=== PATIENT | male | born 1955 | race Caucasian/White ===

== ENCOUNTER 2023-12-22 16:57 | Emergency (ER) | payer BC, SELFPAY ==
[2023-12-22 17:01] VITALS: BP 143/63
[2023-12-22 17:38] VITALS: BMI 27.2
--- NOTE | 2023-12-22 17:39 | EDRN ---
Pt reports hx of asthma, usually gets bronchitis 1-2 x a year, Tuesday started with shallow breathing, post nasal drip and productive cough. Developed fever last night of 102. Called doctor and told to come to ED d/t holiday. Pt took aspirin today &
inhalers without much relief.
[2023-12-22 17:41] VITALS: BP 126/69
[2023-12-22 18:00] VITALS: BP 122/66
--- NOTE | 2023-12-22 18:14 | ED.GENMED ---
History of Present Illness
General
Chief Complaint: Breathing Problem
Source: patient
Time Seen by Provider: 12/22/23 17:41
History of Present Illness
History of Present Illness:
68-year-old male presents to the emergency room complaining of fever, congestion, shortness of breath, cough. Patient states he has a history of asthma and once or twice a year developed symptoms similar to this. Typically improves with a course
of antibiotics. He began feeling unwell 2 days ago. Last night he noted he had a temperature up to 102. No nausea, vomiting, abdominal pain. No chest pain. He contacted his primary care provider who told him to come to the emergency room.
Patient is tolerating oral intake.
Past History
Past History
ED Past Medical History: Asthma and Other (ADD); Negative Hypercholesterolemia or IDDM
Social History
Tobacco: Non-smoker
Alcohol: None
Drug: None
Personal:
Living: with family
Employment: Employed
Family History
Family History: CAD; Negative Early CAD
Phy Exam
Physical Exam
Physical Exam:
General: Awake, Alert, Oriented X3. No acute distress.
Vitals: Febrile, normal pulse ox
Head: Atraumatic
Eyes: Pupils equal, EOMI
Throat: Airway intact, no exudates, mildly dry
Neck: Trachea midline
Lungs: Decreased breath sounds bilaterally, expiratory wheezing bilaterally
Heart: Regular rate, no murmurs
Abd: Soft, Nontender, No pulsatile mass
Neuro: Nonfocal
Skin: Warm, dry, no rash
Extremities: pulses equal b/l, no edema
Scores
Heart Failure Risk
Heart Failure Risk Score: Not Applicable
Course
Orders/Labs/Results
Orders:
Orders
12/22/23 18:12
Acetaminophen [Tylenol] 650 mg PO NOW STA
Ipratropium/Albuterol Sulfate [Duoneb] 3 ml INH R NOW ONE
12/22/23 18:13
CR Chest - 2 Views Urgent
Comment:
Reason For Exam: fever, cough, sob
12/22/23 18:21
Basic Metabolic Panel Urgent
COVID-19 Antigen Urgent
Source: Nasal Swab
Complete Blood Count/With Diff Urgent
Lactic Acid Q4H
Comment: CANCEL 2nd LACTIC ACID IF 1st LACTIC ACID IS LESS THAN 2
Influenza A+B Rapid Molecular Urgent
DALILA Source: Nasal Swab
Specimen Description:
12/22/23 20:21
Doxycycline [Vibramycin] 100 mg PO NOW STA
Ipratropium/Albuterol Sulfate [Duoneb] 3 ml INH R NOW STA
12/22/23 20:26
Prednisone [Deltasone] 50 mg PO NOW STA
Abnormal Lab Results
12/22/23
18:21
RBC 4.24 L 10^6/uL
(4.70-6.10)
Hct 36.6 L %
(39.0-52.0)
Abs Immat Gran (auto) 0.1 H 10^3/uL
(0-0.05)
Absolute Neuts (auto) 8.2 H 10^3/uL
(1.4-6.5)
Absolute Lymphs (auto) 1.0 L 10^3/uL
(1.2-3.4)
Absolute Monos (auto) 1.0 H 10^3/uL
(0.1-0.6)
Immature Gran % 0.7 H %
(0-0.5)
Neutrophils % 79.0 H %
(42.2-75.2)
Lymphocytes % 9.2 L %
(20.5-51.1)
Monocytes % 9.5 H %
(1.7-9.3)
12/22/23 18:21
12/22/23 18:21
Vital Signs
Initial and Last Documented VS:
Initial Vital Signs
Temp Pulse Resp BP Pulse Ox
98.3 F 74 16 143/63 97
12/22/23 17:01 12/22/23 17:01 12/22/23 17:01 12/22/23 17:01 12/22/23 17:01
Last Documented Vital Signs
Temp Pulse Resp BP Pulse Ox
100.2 F 60 18 104/49 98
12/22/23 19:45 12/22/23 20:45 12/22/23 20:45 12/22/23 20:00 12/22/23 20:45
MDM/Problems Addressed
Differential Diagnosis Includes:
Pneumonia, acute bronchitis, asthma exacerbation
MDM/Problems Addressed:
Though patient is febrile COVID and flu test are negative. White count is normal. Chemistries and lactate are normal. Chest x-ray shows no acute infiltrate. Will cover for acute bronchitis with doxycycline. Also cover bronchospasm with steroids
and albuterol nebulizer. Patient feeling better. On repeat exam after couple DuoNebs he is moving air more easily. Wheezing has improved.
*Radiology
Radiology exam reviewed: preliminary read by ED provider (Personally reviewed the patient's chest x-ray and see no infiltrate)
*Pulse Oximetry
Patient hypoxic: no
*Critical Care Note
Total Time (30-74mins, 75-104mins- exclusive of procedures): Not Applicable
ED Attending Note
-
Portions of this chart may have been created with voice recognition software.� Occasional wrong word or��sound alike� substitutions may have occurred due to the inherent limitations of voice recognition software.
Discharge Plan
Departure
Patient Disposition: Home (Routine Discharge)
Date of Disposition: 12/22/23
Time of Disposition: 20:22
Patient with high blood pressure during this ER visit?: No
Condition: Good
Discharge Problem:
Acute bronchitis, Acute bronchospasm
Instructions: Acute Bronchitis, Adult (DC)
Prescriptions:
New
doxycycline monohydrate 100 mg capsule
100 mg PO BID Qty: 14 0RF
fluticasone propion-salmeterol [Advair Diskus] 250-50 mcg/dose blister with device
1 inh inhalation BID Qty: 60 0RF
albuterol sulfate 2.5 mg/0.5 mL solution for nebulization
2.5 mg inhalation Q6H PRN (Reason: bronchospasm) Qty: 30 0RF
prednisone 20 mg tablet
40 mg PO DAILY Qty: 8 0RF
No Action
Albuterol Sulfate Hfa
1 puff inhalation PRN (Reason: wheezing)
methylphenidate HCl [Concerta] 36 MG tablet extended release 24hr
1 tab PO DAILY
Claritin
1 tab PO DAILY
Patient Comments:
unsure of mg
Wellbutrin Regular Release:
1 tab PO DAILY
Patient Comments:
unsure of mg
hydrocodone-acetaminophen [Vicodin] 1 EACH tablet
1 ea PO .Q4-6HPRN Qty: 10 0RF
ibuprofen 600 MG tablet
600 mg PO Q6H Qty: 30 0RF
hydrocodone-acetaminophen [Vicodin] 1 EACH tablet
1 ea PO Q6 PRN (Reason: Pain) Qty: 15 0RF
cyclobenzaprine 10 MG tablet
10 mg PO TIDPRN PRN (Reason: Muscle Spasm) Qty: 15 0RF
prednisone 50 MG tablet
50 mg PO DAILY Qty: 5 0RF
albuterol sulfate 1 PUFF HFA aerosol inhaler
2 puff inhalation R Q4HPRN PRN (Reason: wheezing) Qty: 1 0RF
codeine-guaifenesin [Guaiatussin AC] 10 ML liquid
5 ml PO Q6HPRN PRN (Reason: coughing) Qty: 100 0RF
fluticasone propion-salmeterol [Advair Diskus] 1 EACH blister with device
1 ea IH BID Qty: 1 0RF
levalbuterol HCl 1.25 MG/3 ML solution for nebulization
1.25 mg inhalation R Q4HPRN PRN (Reason: wheezing) Qty: 30 0RF
hydrocodone-acetaminophen [Vicodin] 1 EACH tablet
1 ea PO Q6HPRN PRN (Reason: pain) Qty: 12 0RF
Referrals:
Bony Waldron MD [Family Provider] -
Interventions
Interventions:
*Risk Screen - Suicide Last Done: 12/22/23 17:01
*General Assessment Last Done: 12/22/23 17:01
*Neglect/Abuse Screening Last Done: 12/22/23 17:01
ED- Fall Risk Assessment Last Done: 12/22/23 20:54
*ED COVID-19 Vaccine History Last Done: 12/22/23 20:54
*Nursing Disposition Last Done: 12/22/23 20:54
ED- Cardiac Assessment Last Done: 12/22/23 17:58
ED- Pulmonary Assessment Last Done: 12/22/23 19:58
Discharge Date and Time
Discharge Date/Time: 12/22/23 20:55
Print Language: ICELANDIC
[2023-12-22] MEDS: DUONEB 3 ML INH ×2 (18:25→20:32)
[2023-12-22] MEDS: TYLENOL 650 MG PO (18:25)
[2023-12-22 18:38] LABS: % Basophils 0.7 % (0-2); % Eosinophils 0.9 % (0-6); % Immature Granulocytes 0.7 % (0-0.5); % Lymphocytes 9.2 % (20.5-51.1); % Monocytes 9.5 % (1.7-9.3); Absolute Basophils 0.1 10^3/uL (0-0.2); Absolute Eosinophils 0.1 10^3/uL (0-0.7); Absolute Immature Granulocytes 0.1 10^3/uL (0-0.05); Absolute Neutrophils 8.2 10^3/uL (1.4-6.5); Hematocrit 36.6 % (39.0-52.0); Mean Corp Hgb Conc. 35.5 g/dL (33.0-37.0); Mean Corpuscular Hgb 30.7 pg (27.0-31.0); Mean Corpuscular Volume 86.3 fL (80.0-94.0); Mean Platelet Volume 8.7 fL (7.4-10.4); Nucleated Red Blood Cells % 0 % (-); Platelet Count 154 10^3/uL (130-400); Red Blood Cell Count 4.24 10^6/uL (4.70-6.10); Red Cell Dist. Width 12.4 % (11.5-14.5); White Blood Cell Count 10.3 10^3/uL (4.8-10.8)
[2023-12-22 18:51] LABS: COVID-19 Antigen Negative (Negative)
[2023-12-22 18:57] LABS: Blood Urea Nitrogen 12 mg/dl (9-20); Calcium 8.7 mg/dl (8.4-10.2); Carbon Dioxide 24 mmol/L (22-30); Chloride 106 mmol/L (98-107); Estimated Creatinine Clearance 89 ml/min; Glucose 89 mg/dl (70-99); Sodium 136 mmol/L (135-145); eGFR > 60.00
[2023-12-22 19:00] VITALS: BP 131/61
[2023-12-22 19:01] LABS: Lactic Acid 1.1 mmol/L (0.7-2.0)
[2023-12-22 20:00] VITALS: BP 104/49
[2023-12-22] MEDS: VIBRAMYCIN 100 MG PO (20:32)
[2023-12-22] MEDS: DELTASONE 50 MG PO (20:32)
== END 2023-12-22 20:55 | disposition home or self-care (01) ==
LOC: EMR 16:57
PROVIDERS: EMERGENCY PHYSICIAN Emergency Medicine; FAMILY PHYSICIAN Family Medicine
DX: J20.9 Acute bronchitis, unspecified (principal)
CPT/HCPCS: 99285; 94640; 71046; 80048; 83605; 85025; 87502; 87811

== ENCOUNTER → 2024-02-03 16:41 | Outpatient (REF) | payer OTHER, SELFPAY | LOC: RAD 16:41 | PROVIDERS: ATTENDING PHYSICIAN Family Medicine | DX: R10.11 Right upper quadrant pain (principal) | CPT/HCPCS: 76700 ==